=== PATIENT | female | born 1985 ===

== ENCOUNTER 2020-08-18 15:03 | Outpatient (CLI) | payer OTHER | END 2020-08-18 15:07 | disposition home or self-care (01) | LOC: RAD 15:03 | PROVIDERS: ATTEND Pediatrics | DX: R76.11 Nonspecific reaction to tuberculin skin test without active tuberculosis (principal) ==

== ENCOUNTER 2021-05-16 15:15 | Outpatient (CLI) | payer OTHER | END 2021-05-16 15:30 | disposition home or self-care (01) | LOC: PPH VACUNA 15:15 | PROVIDERS: ATTEND Emergency Medicine Pediatric Emergency Medicine | DX: Z23 Encounter for immunization (principal) ==

== ENCOUNTER 2021-08-11 10:02 | Outpatient (CLI) | payer OTHER | END 2021-08-11 10:20 | disposition home or self-care (01) | LOC: LAB 10:02 | PROVIDERS: ATTEND Emergency Medicine | DX: Z11.1 Encounter for screening for respiratory tuberculosis (principal) ==

== ENCOUNTER 2021-10-23 12:45 | Emergency (ER) | payer OTHER ==
[~2021-10-23] VITALS: Ht 149.9 cm; Wt 53.5 kg
== END 2021-10-23 14:58 | disposition home or self-care (01) ==
LOC: ER 12:45
DX: U07.1 COVID-19 (principal)

== ENCOUNTER 2022-11-21 07:39 | Outpatient (CLI) | payer OTHER | END 2022-11-21 07:54 | disposition home or self-care (01) | LOC: RAD 07:39 | DX: M54.2 Cervicalgia (principal); M54.59 Other low back pain; M54.6 Pain in thoracic spine; M99.01 Segmental and somatic dysfunction of cervical region; M99.02 Segmental and somatic dysfunction of thoracic region; M99.03 Segmental and somatic dysfunction of lumbar region; M99.04 Segmental and somatic dysfunction of sacral region; R29.3 Abnormal posture ==

== ENCOUNTER 2025-06-16 08:04 | Outpatient (CLI) | payer OTHER | END 2025-06-16 08:11 | disposition home or self-care (01) | LOC: RAD 08:04 | DX: M54.2 Cervicalgia (principal); M62.830 Muscle spasm of back; M54.6 Pain in thoracic spine; M54.50 Low back pain, unspecified ==